=== PATIENT | female | born 1980 | race Caucasian/White ===

== ENCOUNTER 2018-04-02 08:00 | Outpatient (CLI) | payer OTHER ==
[2018-04-02 15:48] LABS: BASOPHILS % (AUTO) 0.8 %; LYMPHOCYTES % (AUTO) 16.5 %; MEAN CORPUSCULAR HEMOGLOBIN 31.4 pg (27.0-31.0); MEAN CORPUSCULAR HGB CONC 34.1 g/dL (32.0-36.0); MEAN CORPUSCULAR VOLUME 92.1 fL (81.0-99.0); MEAN PLATELET VOLUME 7.9 fL (7.9-10.8); MONOCYTES % (AUTO) 4.6 %; NEUTROPHILS % (AUTO) 76.1 %; PLT - PLATELET COUNT 401 10^3/uL (130-450); RED BLOOD COUNT 4.16 10^6/uL (4.20-5.40); RED CELL DISTRIBUTION WIDTH 13.8 % (12.0-15.0); WHITE BLOOD COUNT 15.5 x10^3/uL (4.8-10.8)
[2018-04-02 15:52] LABS: ABNORMAL LYMPHS % (MANUAL) 0 %
[2018-04-02 16:10] LABS: BAND NEUTROPHILS % (MANUAL) 1 %; BASOPHILS # (MANUAL) 0.2 10^3/uL (0-0.1); BASOPHILS % (MANUAL) 1 %; DIFFERENTIAL COMMENT MANUAL DIFFERENTIAL; LYMPHOCYTES # (MANUAL) 3.4 10^3/uL (1.5-3.5); LYMPHOCYTES % (MANUAL) 22 %; MONOCYTES # (MANUAL) 0.3 10^3/uL (0.0-1.0); NEUTROPHILS # (MANUAL) 11.6 10^3/uL (1.5-6.6); NEUTROPHILS % (MANUAL) 74 %; PLATELET ESTIMATE, MANUAL NORMAL (130-450,000) (NORMAL); PLATELET MORPHOLOGY NORMAL APPEARANCE (NORMAL); RBC MORPHOLOGY (MULTIPLE) NORMAL APPEARANCE (NORMAL)
== END 2018-04-02 08:01 | disposition home or self-care (01) ==
LOC: LAB.R 08:00
PROVIDERS: ATTEND Midwife
DX: O90.81 Anemia of the puerperium (principal)
CPT/HCPCS: 85025